=== PATIENT | male | born 1995 | race Caucasian/White ===

== ENCOUNTER 2024-05-27 09:06 | Outpatient (CLI) | payer OTHER, SELFPAY ==
[2024-05-27 18:46] LABS: Basophils # 0.1 K/mm3 (0-0.2); Basophils % 0.8 % (0.1-2.0); Eosinophils # 0.2 K/mm3 (0.0-0.4); Eosinophils % 2.1 % (0.1-12.0); Hematocrit 45.3 % (42.0-52.0); Hemoglobin 15.1 g/dL (14.1-18.0); Lymphocytes # 3.3 K/mm3 (0.7-4.5); Lymphocytes % 37.3 % (10-50); Mean Corpuscular HGB Conc 33.2 g/dL (31.8-35.4); Mean Corpuscular Hemoglobin 31.1 pg (27.0-31.2); Mean Corpuscular Volume 93.6 fl (80-94); Mean Platelet Volume 9.1 fl (7.4-10.4); Monocytes # 0.5 K/mm3 (0.1-1.0); Monocytes % 5.6 % (1.7-9.3); Neutrophils # 4.8 K/mm3 (1.8-7.8); Neutrophils % 54.2 % (37.0-80.0); Platelet Count 349 K/mm3 (142-424); Red Blood Count 4.84 M/mm3 (4.60-6.20); Red Cell Distribution Width 13.7 % (11.5-17.5); White Blood Count 8.8 K/mm3 (4.8-10.8)
[2024-05-27 19:06] LABS: Alanine Aminotransferase 21 U/L (12-78); Albumin Level 4.7 g/dl (3.5-5.0); Albumin/Globulin Ratio 1.5 (1.1-1.8); Alkaline Phosphatase 59 U/L (38-126); Aspartate Amino Transferase 24 U/L (17-59); Bilirubin,Total 0.9 mg/dl (0.2-1.3); Blood Urea Nitrogen 20 mg/dl (9-20); Calcium 9.9 mg/dl (8.4-10.2); Carbon Dioxide 27 mmol/L (22.0-30.0); Chloride 104 mmol/L (98-107); Chol/HDL Ratio 5.9 (1-3.5); Cholesterol 237 mg/dl (140-200); Estimated Glomerular Filt Rate 101 ml/min (>60); GFR (African American) 122 ML/MIN (>60); Globulin 3.1 g/dL (1.3-3.2); Glucose 88 mg/dl (74-100); HDL Cholesterol 40 mg/dl (40-60); Sodium 140 mmol/L (136-145); Total Protein,Serum 7.8 g/dl (6.3-8.2); Triglycerides 91 mg/dl (30-150); VLDL Cholesterol 18 mg/dL (0-40)
[2024-05-27 19:16] LABS: Direct LDL Cholesterol 157.94 mg/dL (100-129)
[2024-05-27 19:22] LABS: 25-OH Vitamin D, Total 32.3 ng/mL (30-100)
[2024-05-27 19:37] LABS: Thyroid Stimulating Hormone 2.17 uIU/mL (0.465-4.68)
== END 2024-05-27 23:59 | disposition home or self-care (01) ==
LOC: LAB.DROPOF 05-28 09:06
PROVIDERS: PCP Nurse Practitioner Family; Visit Provider Nurse Practitioner Family
DX: F51.01 Primary insomnia (principal)
CPT/HCPCS: 80050; 80053; 80061; 82306; 84443; 85025

== ENCOUNTER → 2025-10-14 10:47 | Outpatient (CLI) | payer OTHER, SELFPAY ==
--- NOTE | 2025-10-14 10:50 | XR_ITS ---
FINAL REPORT CLINICAL HISTORY: right knee pain, felt a pop when lifting heavy object COMPARISON: None FINDINGS: RIGHT KNEE: 3 images of the right knee were obtained. There is no evidence of fracture or dislocation. The joint spaces are intact. There is no soft tissue abnormality identified. IMPRESSION: No acute bony abnormality. Reviewed, Interpreted and Dictated by Elida Haines MD Transcribed by Nuris Whitehead Authenticated and [facility]
--- OUTSIDE RECORDS SUMMARY | 2025-10-14 12:25 | XMS_ITS | Clinical Summary ---
Author Organization [facility] Address [address] [place] [address] Care Team Providers Care Service Promoter Salesperson Name Role Phone Maximiliano Priest MD Primary Care Provider [phone] Source Comments [facility] is fully rolled out with thefollowing exceptions:General Clinical Research [facility] [place] Social History Tobacco Use Types Packs/Day Years Used Date Smoking Tobacco: Never Assessed Sex and Gender Information Value Date Recorded Sex Assigned at Not on file Legal Sex Male 5:14 AM EST Gender Identity Not on file Sexual Orientation Not on file Plan of Treatment Health Maintenance Due Date Last Done Comments MMR IMMUNIZATION (1 of 1 - S tandard series) 1998 DTAP/Tdap/Td IMMUNIZATION (1 - Tdap) 2004 Yearly Physical Ages 3-18+ 2008 VARICELLA IMMUNIZATION (1 of 2 - 13+ 2-dose series) 2010 HEPATITIS B IMMUNIZATION (1 of 3 - 19+ 3-dose series) 2016 HPV IMMUNIZATION (1 - 3-dose SCDM series) 2024 AMB SEASONAL FLU VACCINE (#1) 06/29/2025 COVID-19 Vaccine ( - 2024-2 6 season) 2025 HIB IMMUNIZATION Aged Out No longer e ligible based on patient's age to complete this topic IPV IMMUNIZATION Aged Out No longer e ligible based on patient's age to complete this topic MCV4 IMMUNIZATION Aged Out No longer eligible based on patient's age to complete this topic MENINGOCOCCAL B VACCINE Aged Out No l onger eligible based on patient's age to complete this topic PNEUMOCOCCAL IMMUNIZATION Aged Out No longer eligible based on patient's age to complete this topic Respiratory Syncytial Virus (RSV) <20mo Aged Out No longer eligible b ased on patient's age to complete this topic Care Teams Service Promoter Salesperson Relationship Specialty Start Date End Date Maximiliano Priest MD [address] [place] [address] , [place] [address] PCP - General 02/03/08
--- OUTSIDE RECORDS SUMMARY | 2025-10-14 12:25 | XMS_ITS | Clinical Summary ---
Author Organization [facility] [facility] Address [address] [place] [address] Phone Care Team Providers Care Cyber Security Engineer Name Role Phone Elroy Rodriguez MD Primary Care Provider [phone] Cl Hernandez PHD Unavailable [phone] Allergies No known active allergies Medications methylphenidate HCl (RITALIN) 20 mg Oral TabletIndicatio ns:Adult ADHD Take 1 Tablet by mouth 2 times daily as needed for Other (ADHD symptoms). 60 Tablet 12/30/2021 Active montelukast (SINGULAIR) 10 mg Oral TabletIndicatio ns:Environmenta l allergies Take 1 Tablet by mouth nightly. 30 Tablet 2 03/16/2022 Active AUVI-Q 0.3 mg/0.3 mL Inj Auto-InjectorIn dications:Seaso nal allergic rhinitis due to pollen,Perennia l allergic rhinitis with seasonal variation Use as directed 2 Each 07/10/2022 Active azelastine (ASTELIN) 137 mcg (0.1 %) Nasl Aerosol, SprayIndication s:Nasal congestion,PND (post-nasal drip),Hypertrop hy of nasal turbinates 2 Sprays in each nostril 2 times daily. Use in each nostril as directed 30 mL 5 07/10/2022 Active budesonide (RINOCORT AQUA) 32 mcg/actuation Nasl [place], Non-AerosolIndi cations:Nasal congestion,PND (post-nasal drip),Hypertrop hy of nasal turbinates 2 Sprays by Nasal route daily. 5 mL 5 07/10/2022 Active omeprazole (PRILOSEC) 40 mg Oral Capsule, Delayed Release(E.C.)In dications:PND (post-nasal drip),Globus sensation Take 1 Capsule by mouth daily. 30 Capsule 1 07/10/2022 Active Active Problems Patient Care Coordination No te Formatting of this note migh t be different from the original. Controlled Substance Contract Signed 02/02/2017 Controlled Substance Concents Signed 02/02/2017 Urine Drug Screen: as expected 05/05/2021 [place]: as expected 12/29/2021 okay for CSV q6mo - Dr Rodriguez Problem Noted Date Diagnosed Date Adult ADHD 01/01/2017 Overview (06/19/2019): Diagnosed by Dr Gomez 11/2016. Intolerant of adderall. Ritalin has been effective Seasonal allergic rhinitis 01/01/2017 Immunizations Immunization Administration Dates Next Due DTaP 06/05/2001, 9,03/26/1998, 7,1997 Hepatitis A, Ped/Adol, 2 Dose 03/29/2012, 008 Hepatitis B, Ped/Adol 06/07/1999,1997,02/27 HiB (PRP-T) 10/06/1998, 8,1997, 7 IPV 06/05/2001, 8,1997, 7 Influenza Seasonal Injectable 09/22/2006 Influenza Vaccine Quadrivalent PF 08/24/2021 MMR 06/05/2001,05/08/1998 Meningococcal Polysaccharide 05/05/2008 PPD Test 05/18/2021,05/05/2021,07/28/2019 Tdap 05/09/2022,05/05/2021,05/05/2008 Varicella 05/05/2008,10/06/1998 Surgical History Surgery Date Site/Laterality Comments KNEE SURGERY Left cyst removal Family History Medical History Relation Name Comments Heart Disease Maternal Grandfather Relation Name Status Comments Maternal Grandfather Social History Tobacco Use Types Packs/Day Years Used Date Smoking Tobacco: Never Smokeless Tobacco: Never Tobacco Cessation:Counseling Given: Not Answered Alcohol Use Standard Drinks/Week Comments Yes 0 (1 standard drink = 0.6 oz pur e alcohol) PHQ-2 Answer Date Recorded PHQ-2 Total Score 0 01/03/2021 Sex and Gender Information Value Date Recorded Sex Assigned at Not on file Legal Sex Male 9:23 PM EDT Gender Identity Not on file Sexual Orientation Not on file Last Filed Vital Signs Vital Sign Reading Time Taken Comments Blood Pressure 120/72 10/04/2022 9:22 AM EST Pulse 74 10/04/2022 9:22 AM EST Temperature 36.7 C (98 F) 10/04/2022 9:22 AM EST Respiratory Rate 16 05/09/2022 9:31 AM EDT Oxygen Saturation 99% 10/04/2022 9:22 AM EST Inhaled Oxygen Concentration - - Weight 104.8 kg (231 lb) 10/04/2022 9:22 AM EST Height 185.4 cm (6' 1 ) 10/04/2022 9:22 AM EST Body Mass Index 30.48 10/04/2022 9:22 AM EST Plan of Treatment Health Maintenance Due Date Last Done Comments Annual Wellness Exam 2000 COVID-19 Vaccine ( season) 2025 Influenza Vaccine (#1) 2025 , 07/10/2017 (Declined), 07/17/2016 (Declined), Additional history exists DTaP/TDaP/Td (9 - Td or Tdap) 05/09/2032 05/09/2022, 05/05/2021, 05/05/2008, Additional history exists Hepatitis B Vaccine Completed 06/07/1999, 1997, 1997 Meningococcal B Vaccine Aged Out No l onger eligible based on patient's age to complete this topic Pneumococcal Vaccine 0-49 Aged Out No longer eligible based on patient's age to complete this topic Goals Goal Patient Goal Type Associated Problems Recent Progress Patient-Stated? Author Maintain a healthy diet, exercise regularly and maintain an ideal body weight General No Elroy Rodriguez MD Insurance [facility] [id number] Care Teams Cyber Security Engineer Relationship Specialty Start Date End Date Elroy Rodriguez MD [address] [place] [address] PCP - General Family Medicine 01/01/17 Cl Hernandez, PHD [address] [place] [id number] Marriage & Family Therapist 01/01/17
== END ==
LOC: RAD 10:48
PROVIDERS: PCP Nurse Practitioner Family; Visit Provider Physician Assistant
DX: M25.561 Pain in right knee (principal); X50.0XXA Overexertion from strenuous movement or load, initial encounter
CPT/HCPCS: 73562

== ENCOUNTER 2025-10-28 13:32 | Outpatient (CLI) | payer OTHER, SELFPAY ==
--- OUTSIDE RECORDS SUMMARY | 2025-10-28 13:34 | XMS_ITS | Clinical Summary ---
Author Organization [facility] Address [address] [place] [id number] Care Team Providers Care Peer Health Promoter Name Role Phone Maximiliano Priest MD Primary Care Provider [phone] Source Comments [facility] is fully rolled out with thefollowing exceptions:General Clinical Research [facility] Social History Tobacco Use Types Packs/Day Years [...] of 3 - 19+ 3-dose series) 2016 AMB SEASONAL FLU VACCINE (#1) 06/29/2025 COVID-19 Vaccine (1 - 2024-2 6 season) 2025 HIB IMMUNIZATION Aged Out No longer e ligible based on patient's age to complete this topic HPV IMMUNIZATION (No Doses Required) Completed IPV IMMUNIZATION Aged Out No longer e [...] age to complete this topic Care Teams Peer Health Promoter Relationship Specialty Start Date End Date Maximiliano Priest MD [address] [place] [address] , [place] [address] PCP - General 02/03/08
--- OUTSIDE RECORDS SUMMARY | 2025-10-28 13:34 | XMS_ITS | Clinical Summary ---
Author Organization [facility] Address [address] [place] [address] Phone Care Team Providers Care Sewage Screen Operator Name Role Phone Elroy Rodriguez MD Primary Care Provider [phone] Cl Hernandez PHD Unavailable [phone] Allergies No known active allergies Medications [...] Active budesonide (RINOCORT AQUA) 32 mcg/actuation Nasl [place], Non-AerosolIndi cations:Nasal congestion,PND (post-nasal drip),Hypertrop hy of [...] weight General No Elroy Rodriguez MD Insurance [facility] [id number] Care Teams Sewage Screen Operator Relationship Specialty Start Date End Date Elroy Rodriguez MD [address] [place] [address] PCP - General Family Medicine 01/01/17 Cl Hernandez, PHD [address] [place] [id number] Marriage & Family Therapist 01/01/17
--- NOTE | 2025-10-28 13:45 | MR_ITS ---
FINAL REPORT TECHNIQUE: Multiplanar and multisequence imaging of the right knee was obtained without contrast. CLINICAL HISTORY: Rt knee pain, medial pain, twisted and felt pop 10/08 COMPARISON: None FINDINGS: Bones: There is no acute fracture or marrow edema. 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 There are no full thickness cartilage defects. Menisci: No meniscal tear is present. Ligaments: No cruciate or collateral ligament tear is present. Tendons/Muscles: The quadriceps and patellar tendons are intact. The biceps femoris tendon and iliotibial tract are intact. The popliteus tendon is unremarkable. Other: No significant joint effusion. Remaining soft tissues are normal. IMPRESSION: 1. No acute osseous abnormality, meniscal tear, or ligament tear. No supporting structure injury. 2. 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 Reviewed, Interpreted and Dictated by Jennifer Chapman MD Transcribed by Nuris Whitehead Authenticated and [facility]
== END 2025-10-28 23:59 | disposition home or self-care (01) ==
LOC: RAD 13:32
PROVIDERS: PCP Nurse Practitioner Family; Visit Provider Physician Assistant
DX: M22.41 Chondromalacia patellae, right knee (principal); X50.1XXA Overexertion from prolonged static or awkward postures, initial encounter
CPT/HCPCS: 73721